=== PATIENT | female | born 2000 | race Caucasian/White ===

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

== ENCOUNTER 2021-10-30 06:05 | Emergency (ER) | payer MEDICAID ==
[~2021-10-30] VITALS: Ht 167.6 cm; Wt 83.0 kg
[2021-10-30 06:13] VITALS: BP 116/74
--- NOTE | 2021-10-30 06:21 | NUR ---
PT AMBULATORY TO BED 04 W STEADY GAIT.
--- NOTE | 2021-10-30 06:22 | NUR ---
PT TAKEN TO BED 2
--- NOTE | 2021-10-30 06:42 | NUR ---
Dr. Cuevas examining patient.
--- NOTE | 2021-10-30 07:13 | NUR ---
RECIEVED CHANGE OF SHIFT REPORT FROM RAMA MANNING
--- NOTE | 2021-10-30 07:49 | NUR ---
UA WAS WALKED TO LAB AND RECIEVED BY [facility].
[2021-10-30 08:35] LABS: APPEARANCE,URINE SL CLOUDY (CLEAR); BILIRUBIN,URINE NEGATIVE (NEGATIVE); BLOOD, URINE TRACE-I (NEGATIVE); COLOR,URINE AMBER (YELLOW); LEUKOCYTE ESTERASE ,URINE 2+ (NEGATIVE); NITRITE, URINE NEGATIVE (NEGATIVE); UGLUCOSE NEGATIVE (NEGATIVE)
--- NOTE | 2021-10-30 08:58 | NUR ---
PT IN SITTING IN BED COMFORTABLY AT THIS TIME.
[2021-10-30 09:22] LABS: RBC,URINE 0-5 /HPF (0-5)
[2021-10-30 09:23] LABS: CALCIUM OXALATE CRYSTALS,UR None Seen /HPF (None Seen); TRICHOMONAS,URINE None Seen /HPF (None Seen); YEAST,URINE None Seen /HPF (None Seen)
[2021-10-30 09:24] LABS: COARSE GRANULAR CASTS,URINE None Seen /LPF (None Seen); FINE GRANULAR CASTS,URINE None Seen /LPF (None Seen); HYALINE CASTS, URINE None Seen /LPF (None Seen); OTHER CASTS, URINE None Seen /LPF (None Seen); OTHER CRYSTALS,URINE None Seen /HPF (None Seen); RED BLOOD CELL CASTS,URINE None Seen /LPF (None Seen); TRIPLE PHOSPHATE CRYSTAL,UR None Seen /HPF (None Seen); URIC ACID CRYSTALS,URINE None Seen /HPF (None Seen); URINE AMORPHOUS URATE None Seen /HPF (None Seen); WAXY CASTS,URINE None Seen /LPF (None Seen)
--- NOTE | 2021-10-30 09:46 | NUR ---
Patient discharged with v/s stable. Written and verbal after care instructions given and explained. Patient verbalized understanding. Ambulatory with steady gait. All questions addressed prior to discharge. Advised to follow up with PMD. Work note given.
[2021-10-30 09:47] VITALS: BP 123/78
== END 2021-10-30 09:47 | disposition home or self-care (01) ==
LOC: MED 06:05
DX: F07.81 Postconcussional syndrome (principal); E11.9 Type 2 diabetes mellitus without complications
CPT/HCPCS: 81001; 81025; 87086; 99283

== ENCOUNTER 2021-11-04 00:08 | Emergency (ER) | payer MEDICAID ==
[~2021-11-04] VITALS: Ht 167.6 cm; Wt 82.1 kg
[2021-11-04 00:41] VITALS: BP 117/76
[2021-11-04] MEDS ORDERED: NAPR-54 PO (01:18)
[2021-11-04] MEDS ORDERED: KETOROLAC 60 MG/2 ML VIAL IM ONE (01:20)
[2021-11-04 01:45] VITALS: BP 117/76
== END 2021-11-04 01:45 | disposition home or self-care (01) ==
LOC: MED 00:08
DX: S20.219A Contusion of unspecified front wall of thorax, initial encounter (principal); Z79.899 Other long term (current) drug therapy; V49.49XA Driver injured in collision with other motor vehicles in traffic accident, initial encounter; Y93.89 Activity, other specified; Y92.89 Other specified places as the place of occurrence of the external cause; Y99.8 Other external cause status
CPT/HCPCS: 71045; 81025; 96372; 99283; J1885; Q0092